=== PATIENT | female | born 1965 | race Caucasian/White ===

== ENCOUNTER 2020-11-06 11:04 | Outpatient (CLI) | payer BC | END 2020-11-06 11:05 | disposition home or self-care (01) | LOC: CSHMAMMO 11:04 | PROVIDERS: ATTEND Obstetrics & Gynecology | DX: Z12.31 Encounter for screening mammogram for malignant neoplasm of breast (principal) | CPT/HCPCS: 77063; 77067 ==

== ENCOUNTER 2021-11-07 14:53 | Outpatient (CLI) | payer BC | END 2021-11-07 14:54 | disposition home or self-care (01) | LOC: CSHMAMMO 14:53 | PROVIDERS: ATTEND Obstetrics & Gynecology | DX: Z12.31 Encounter for screening mammogram for malignant neoplasm of breast (principal); Z91.89 Other specified personal risk factors, not elsewhere classified | CPT/HCPCS: 77063; 77067 ==

== ENCOUNTER 2023-12-02 15:29 | Outpatient (CLI) | payer BC | END 2023-12-02 15:30 | disposition home or self-care (01) | LOC: CSHMAMMO 15:29 | PROVIDERS: ATTEND Obstetrics & Gynecology | DX: Z12.31 Encounter for screening mammogram for malignant neoplasm of breast (principal); Z91.89 Other specified personal risk factors, not elsewhere classified | CPT/HCPCS: 77063; 77067 ==